=== PATIENT | female | born 1985 | race Caucasian/White ===

== ENCOUNTER 2023-10-06 22:51 | Emergency (ER) | payer MEDICAID, SELFPAY ==
[2023-10-06 23:01] VITALS: BP 110/81
[2023-10-06 23:53] VITALS: BMI 21.2
[2023-10-07] MEDS: NSS 1000 IV (00:09)
[2023-10-07] MEDS: ZOFRAN 4 MG IV ×2 (00:09→03:13)
[2023-10-07] MEDS: OMNIPAQUE 50 ML PO (00:09)
[2023-10-07 00:24] LABS: HCG, Serum Qualitative Screen Negative
[2023-10-07 00:27] LABS: Urine Albumin Negative (Neg - Trace); Urine Bilirubin Negative (Negative); Urine Character Clear (Clear); Urine Color Yellow; Urine Glucose Negative (Negative); Urine Ketone Negative (Negative); Urine Leukocyte Trace (Negative); Urine Nitrite Negative (Negative); Urine Occult Blood Negative (Negative); Urine Urobilinogen Negative (Neg - 1+)
[2023-10-07 00:28] LABS: ALT (SGPT) 18 U/L (0-35); AST (SGOT) 21 U/L (14-36); Albumin 4.7 g/dl (3.5-5.0); Alkaline Phosphatase 44 U/L (38-126); Blood Urea Nitrogen 20 mg/dl (7-17); Carbon Dioxide 22 mmol/L (22-30); Chloride 102 mmol/L (98-107); Estimated Creatinine Clearance 105 ml/min; Glucose 96 mg/dl (70-99); Potassium 3.8 mmol/L (3.5-5.1); Sodium 135 mmol/L (135-145); Total Bilirubin 0.5 mg/dl (0.2-1.3); Total Protein 7.7 g/dl (6.3-8.2); eGFR > 60.00
[2023-10-07 00:32] LABS: % Basophils 0.8 % (0-2); % Eosinophils 0.6 % (0-6); % Immature Granulocytes 0.6 % (0-0.5); % Lymphocytes 35.6 % (20.5-51.1); % Monocytes 8.6 % (1.7-9.3); % Neutrophils 53.8 % (42.2-75.2); Absolute Lymphocytes 1.9 10^3/uL (1.2-3.4); Absolute Monocytes 0.5 10^3/uL (0.1-0.6); Absolute Neutrophils 2.9 10^3/uL (1.4-6.5); Hematocrit 37.4 % (37.0-47.0); Hemoglobin 12.4 g/dL (12.0-16.0); Mean Corp Hgb Conc. 33.2 g/dL (33.0-37.0); Mean Corpuscular Hgb 28.8 pg (27.0-31.0); Mean Platelet Volume 11.2 fL (7.4-10.4); Nucleated Red Blood Cells % 0 %; Platelet Count 239 10^3/uL (130-400); White Blood Cell Count 5.3 10^3/uL (4.8-10.8)
[2023-10-07 00:39] LABS: Urine Mucus Many
[2023-10-07 00:40] LABS: Urine Bacteria Moderate (Negative); Urine Squamous Cell 16-20 /LPF (Few)
[2023-10-07 00:51] LABS: D-Dimer 0.44 ug/mlFEU (0.00-0.50)
--- NOTE | 2023-10-07 00:59 | ED.GENMED ---
History of Present Illness
General
Chief Complaint: Chest Pain
Source: patient
Exam Limitations: none
Time Seen by Provider: 10/06/23 23:46
Nursing documentation reviewed up to this point in time: agreed with
Travel History
Have you had any contact with someone who has COVID-19?: No
Do you have any symptoms of coronavirus? Fever > 100 degrees, chills, cough, shortness of breath, sore throat, loss of taste or smell, muscle aches, or headache?: No
History of Present Illness
History of Present Illness:
38 yo female w hx PE 7 yrs ago, presents with crampy pains across her abdomen constant, some relief with ibuprofen, pain waxing and waning 2/10- 9/10 for past week, developed left upper chest pain 3 days ago 'like a pulled muscle.' Denies
fever/chills. Constant nausea but no vomiting. No diarrhea. or constipation.
Past History
Past History
ED Past Medical History: Psychiatric (Anxiety), Other (Migraine headaches) and Other (GERD, PE)
ED Past Surgical History: Gynecological (D and E- 09/16/16)
Social History
Tobacco: Non-smoker
Alcohol: Occasional
Drug: Marijuana
Personal: Single
Living: alone
Employment: Employed
Family History
Family History: Other (Father had a DVT after knee replacement); Negative Diabetes, Hypertension, Early CAD or CAD
Review of Systems
Review of Systems
Allergies reviewed?: Yes
All Other Systems: ROS reviewed and negative except as documented in HPI and ROS
Constitutional: Denies fever or chills
Respiratory: Denies trouble breathing
Cardiac: Reports chest pain
ABD/GI: Reports abdominal pain, nausea and anorexia; Denies vomiting, diarrhea, constipated, bloody stools or black stools
: Denies dysuria, frequency, difficulty voiding or urgency
Musculoskeletal: Reports no symptoms
Skin: Reports no symptoms
Neurological: Reports no symptoms
Phy Exam
Physical Exam
Physical Exam:
GENERAL: No acute distress. A&Ox3.
CONSTITUTIONAL: Afebrile.
EYES: clear, conjunctivae normal
ENMT: moist mucus membranes
RESPIRATORY: Regular respirations, nonlabored, lungs clear.
CARDIOVASCULAR: Regular rate and rhythm, no murmurs, no rubs.
GI: Soft, nondistended, mildly tender to palpate mid abdomen, normal BS
MUSCULOSKELETAL: Unable to reproduce chest pain with palpation. Moves with ease. Well perfused.
SKIN: Warm, dry, pink
PSYCH: Normal mood and affect. Well kept, interactive and appropriate
NEUROLOGIC: Awake, alert and oriented. No focal neurological deficits
Scores
Heart Score for Chest Pain Patients
STEMI patient?: Not applicable
Course
Orders/Labs/Results
Orders:
Orders
10/06/23 22:54
Electrocardiogram (*1) Urgent
Reason for Study: Chest Pain
EKG- Treatment ONCE
10/06/23 23:55
Complete Blood Count/With Diff Urgent
Comprehensive Metabolic Panel Urgent
HCG, Serum Qualitative Screen Urgent
Lipase Urgent
Urinalysis Reflex To Culture Urgent
Date Specimen was Collected: 10/07/23
Time Specimen was Collected: 00:13
Iohexol [Omnipaque] See Protocol PO NOW STA
10/06/23 23:56
D-Dimer Urgent
0.9% Sodium Chloride 1000 ml [Nss] 1,000 ml IV BOLUS
Test Result ONCE
10/07/23 00:00
CT Abd/pel W Iv And Oral Contr Urgent
Reason For Exam: pain across mid abdomen
10/07/23 00:05
Ondansetron Injectable [Zofran] 4 mg .ROUTE .STK-MED ONE
10/07/23 00:08
Ondansetron Injectable [Zofran] 4 mg IV NOW STA
10/07/23 00:15
Urine Microscopic Reflex Cult Urgent
Urine Culture Urgent
[place] Source: U
Specimen Description:
Date Specimen was Collected: 10/07/23
Time Specimen was Collected: 00:13
10/07/23 02:06
Troponin I Urgent
10/07/23 03:03
Dicyclomine [Bentyl] 20 mg PO NOW STA
Ketorolac [Toradol] 15 mg IV NOW STA
Ondansetron Injectable [Zofran] 4 mg IV NOW STA
Abnormal Lab Results
10/07/23 10/07/23
00:01 00:15
MPV 11.2 H fL
(7.4-10.4)
Immature Gran % 0.6 H %
(0-0.5)
BUN 20 H mg/dl
(7-17)
Leukocyte Esterase Rfl Trace A
(Negative)
Urine RBC 3-6 A /HPF
(0-2)
Urine Bacteria (Reflex) Moderate A
(Negative)
10/07/23 00:01
10/07/23 00:01
Vital Signs
Initial and Last Documented VS:
Initial Vital Signs
Temp Pulse Resp BP Pulse Ox
98.5 F 91 16 110/81 100
10/06/23 23:01 10/06/23 23:01 10/06/23 23:01 10/06/23 23:01 10/06/23 23:01
Last Documented Vital Signs
Temp Pulse Resp BP Pulse Ox
98.5 F 75 18 99/63 99
10/06/23 23:01 10/07/23 03:24 10/07/23 03:24 10/07/23 03:24 10/07/23 03:24
MDM/Problems Addressed
Differential Diagnosis Includes:
musculoskeletal chest wall pain, PE, costochondritis
GERD, diverticulitis, colitis, constipation,GI virus
MDM/Problems Addressed:
38 yo female w hx PE 7 yrs ago, presents with crampy pains across her abdomen constant, some relief with ibuprofen, pain waxing and waning 2/10- 9/10 for past week, developed left upper chest pain 3 days ago 'like a pulled muscle.' Denies
fever/chills. Constant nausea but no vomiting. No diarrhea.
EKG:Normal sinus rhythm
10/07/2023 0059 AM
CBC normal
CMP normal
D-dimer within normal limits
hCG negative
UA negative
10/07/[address] abdomen pelvis with p.o. and IV contrast: Radiology report read: Impression: No acute process identified.
Patient informed of all results
Nothing workup today to explain patient's symptoms.
I will treat her abdominal crampy pains with antispasmodic Bentyl, her nausea with Zofran, her chest pain and abdominal pains with ibuprofen.
She is comfortable going, home, is appreciative of the care
Referred to GI for follow-up
Upon discharge patient ambulated out with normal gait
*EKG
Interpreted by ED Provider?: Yes
EKG Intrepretation Date: 10/06/23
Interpretation: normal
Rate: normal
Rhythm: sinus
[place]: normal axis
Interval: normal interval
QRS Pattern: normal QRS
Ischemia: no ischemia
*Critical Care Note
Total Time (30-74mins, 75-104mins- exclusive of procedures): Not Applicable
Patient Management
Social determinants of health affecting care: Strong social support
ED Attending Note
-
Portions of this chart may have been created with voice recognition software.� Occasional wrong word or��sound alike� substitutions may have occurred due to the inherent limitations of voice recognition software.
Discharge Plan
Departure
Patient Disposition: Home (Routine Discharge)
Date of Disposition: 10/07/23
Time of Disposition: 03:07
Patient with high blood pressure during this ER visit?: No
Condition: Fair
Discharge Problem:
Abdominal pain, Atypical chest pain
Instructions: Chest Pain That Is Not Caused by the Heart (DC), Costochondritis (DC), Abdominal Pain
Prescriptions:
New
ondansetron 4 mg tablet,disintegrating
4 mg PO Q8H PRN (Reason: nausea and vomiting) 5 Days Qty: 14 0RF
dicyclomine 20 mg tablet
20 mg PO QID PRN (Reason: abdominal pain) Qty: 20 0RF
No Action
sertraline 25 mg Tablet
25 mg PO DAILY Qty: 90 0RF
enoxaparin 40 mg/0.4 mL Syringe
40 mg SC DAILY Qty: 42 0RF
acetaminophen [Tylenol Extra Strength] 500 mg Tablet
1,000 mg PO Q6HPRN PRN (Reason: mild pain)
docusate sodium [Colace] 100 mg Capsule
100 mg PO DAILY
[facility] [] 28 mg iron- 800 mcg Tablet
2 tab PO DAILY
Referrals:
Felice eHrnandez MD [Family Provider] -
Anna Carpenter MD [Active] - Next open appointment
Activity Restrictions/Additional Instructions:
As we discussed, nothing worrisome in your workup here today.
Try the Bentyl for the abdominal cramping
I sent a prescription for Bentyl for abdominal cramps and Zofran for nausea to your pharmacy follow-up
With the GI doctor next available appointment
Try Ibuprofen for the chest pain
See your primary doctor if not feeling much better in 3-4 days
Interventions
Interventions:
*Risk Screen - Suicide Last Done: 10/06/23 23:01
*General Assessment Last Done: 10/06/23 23:01
*Neglect/Abuse Screening Last Done: 10/06/23 23:01
ED- Fall Risk Assessment Last Done: 10/06/23 23:50
*ED COVID-19 Vaccine History Last Done: 10/07/23 03:24
*Nursing Disposition Last Done: 10/07/23 03:24
ED- Cardiac Assessment Last Done: 10/06/23 23:50
Discharge Date and Time
Discharge Date/Time: 10/07/23 03:26
[2023-10-07 01:16] LABS: Lipase 63 U/L (23-300)
[2023-10-07 02:56] LABS: Troponin I < 0.012 ng/ml
[2023-10-07] MEDS: TORADOL 15 MG IV (03:12)
[2023-10-07] MEDS: BENTYL 20 MG PO (03:13)
[2023-10-07 03:24] VITALS: BP 99/63
== END 2023-10-07 03:26 | disposition home or self-care (01) ==
LOC: EMR 22:51
PROVIDERS: Registered Nurse; EMERGENCY PHYSICIAN Emergency Medicine; FAMILY PHYSICIAN Family Medicine
DX: R10.9 Unspecified abdominal pain (principal); R07.89 Other chest pain; R11.0 Nausea; Z86.711 Personal history of pulmonary embolism
CPT/HCPCS: 99285; 96374; 96375; 96361; 96376; 74177; 80053; 81003; 81015; 83690; 84484; 84703; 85025; 85379; 87086; 93005; Q9967

== ENCOUNTER 2024-02-26 19:08 | Emergency (ER) | payer MEDICAID, SELFPAY ==
[2024-02-26 19:12] VITALS: BP 117/75
[2024-02-26 19:42] LABS: % Basophils 0.8 % (0-2); % Immature Granulocytes 0.3 % (0-0.5); % Lymphocytes 31.2 % (20.5-51.1); % Monocytes 7.7 % (1.7-9.3); Absolute Basophils 0.1 10^3/uL (0-0.2); Absolute Eosinophils 0.1 10^3/uL (0-0.7); Absolute Monocytes 0.5 10^3/uL (0.1-0.6); Absolute Neutrophils 3.7 10^3/uL (1.4-6.5); Hematocrit 35.8 % (37.0-47.0); Hemoglobin 12.1 g/dL (12.0-16.0); Mean Corp Hgb Conc. 33.8 g/dL (33.0-37.0); Mean Corpuscular Volume 88.6 fL (81.0-99.0); Mean Platelet Volume 10.8 fL (7.4-10.4); Nucleated Red Blood Cells % 0 %; Platelet Count 248 10^3/uL (130-400); Red Blood Cell Count 4.04 10^6/uL (4.20-5.40); Red Cell Dist. Width 11.9 % (11.5-14.5); White Blood Cell Count 6.3 10^3/uL (4.8-10.8)
[2024-02-26 19:54] LABS: HCG, Serum Qualitative Screen Negative
[2024-02-26 19:55] LABS: COVID-19 Antigen Negative (Negative)
[2024-02-26 19:58] LABS: ALT (SGPT) < 10 U/L (0-35); AST (SGOT) 18 U/L (14-36); Albumin 2.9 g/dl (3.5-5.0); Alkaline Phosphatase 40 U/L (38-126); Blood Urea Nitrogen 14 mg/dl (7-17); Calcium 9.6 mg/dl (8.4-10.2); Carbon Dioxide 27 mmol/L (22-30); Chloride 105 mmol/L (98-107); Glucose 107 mg/dl (70-99); Lipase 85 U/L (23-300); Potassium 3.9 mmol/L (3.5-5.1); Sodium 138 mmol/L (135-145); Total Bilirubin 0.4 mg/dl (0.2-1.3); eGFR > 60.00
[2024-02-26 20:09] LABS: Troponin I < 0.012 ng/ml
--- NOTE | 2024-02-26 21:58 | ED.GENMED ---
History of Present Illness
General
Chief Complaint: Headache
Source: patient
Exam Limitations: none
Time Seen by Provider: 02/26/24 21:35
Nursing documentation reviewed up to this point in time: agreed with
History of Present Illness
History of Present Illness:
Patient is a 38-year-old female with history of factor V Leiden, PE (7 years ago )presents to the ER for evaluation. She reports for the past 1 week she has had constant generalized headaches nausea and chest pain. She has felt short winded. She
was playing softball and did feel short of breath which is not like her she does report she is under a lot of stress planning a wedding and planning her 1-year-old's birthday but because of persistent symptoms came to the ER for evaluation.
She denies any fever chills illness injury. She denies any joint pain rash neck pain. She denies any vision changes. She has been taking Ibuprofen/Excedrin for her headaches however that is not relieving her s/s.
Past History
Past History
ED Past Medical History: Psychiatric (Anxiety), Other (Migraine headaches) and Other (GERD, PE)
ED Past Surgical History: Gynecological (D and E- 09/16/16)
Social History
Tobacco: Non-smoker
Alcohol: Occasional
Drug: Marijuana
Personal: Single
Living: alone
Employment: Employed
Family History
Family History: Other (Father had a DVT after knee replacement); Negative Diabetes, Hypertension, Early CAD or CAD
Review of Systems
Review of Systems
Allergies reviewed?: Yes
All Other Systems: ROS reviewed and negative except as documented in HPI and ROS
Constitutional: Reports no symptoms; Denies fever, fatigue or chills
EENT: Reports no symptoms
Respiratory: Reports no symptoms
Cardiac: Reports chest pain
ABD/GI: Reports nausea; Denies vomiting
: Reports no symptoms
Musculoskeletal: Reports no symptoms; Denies neck pain
Skin: Reports no symptoms; Denies rash
Neurological: Reports headache; Denies dizzy
Hematologic/Lymphatic: Reports no symptoms
Psychiatric: Reports no symptoms
Phy Exam
General Physical Exam
General Presentation: no apparent distress
General age: appears stated age
General Skin: warm and dry
General Habitus: normal
General Mental: alert
General Hydration: appears well hydrated
ENT Exam
ENT Exam: EOMI and neck supple
Eye Exam
Eye Exam: PERRL and EOMI
Eye Exam General: PERRL: bilateral and EOM intact: bilateral
Pupil Exam: Bilateral: round and reactive
Cardiovascular Exam
Cardiovascular Exam: regular rate/rhythm, no murmur and normal peripheral pulses
Pulmonary Exam
Pulmonary Exam: lungs clear and no respiratory distress
Neurological Exam
Neurological Exam: alert and oriented x3
Russel Coma Scale
Eye Opening: Spontaneous
Verbal Response: Oriented
Motor Response: Obeys Commands
GCS Total Score: 15
Cerebellar
Cerebellar Function: normal finger to nose
Musculoskeletal Exam
Musculoskeletal Exam: full ROM
Skin Exam
Skin Exam: normal color and warm/dry
Psychiatric Exam
Psychiatric Exam: normal mood/affect
Course
Orders/Labs/Results
Orders:
Orders
02/26/24 19:17
EKG [Electrocardiogram (*1)] Urgent
Reason for Study: Chest Pain
EKG- Treatment ONCE
Test Result ONCE
02/26/24 19:27
Add On- LAB Urgent
Tests Added?: lipase
CBC/With Diff [Complete Blood Count/With Diff] Urgent
CMP [Comprehensive Metabolic Panel] Urgent
COVID-19 Antigen Urgent
Source: Nasal Swab
HCG, Serum Qualitative Screen Urgent
Lipase Urgent
Comment: ADD ON
Troponin I Urgent
02/26/24 22:10
CT Head W/o Iv Contrast Urgent
Comment:
Reason For Exam: headache
Chest PE Study CT [CT Chest Pe Study] Urgent
Comment:
Reason For Exam: cp /sob
02/26/24 23:12
Diphenhydramine [Benadryl] 25 mg IV NOW STA
Metoclopramide [Reglan] 10 mg IV NOW STA
02/26/24 23:13
0.9% Sodium Chloride 1000 ml [Nss] 1,000 ml IV BOLUS
Abnormal Lab Results
02/26/24
19:27
RBC 4.04 L 10^6/uL
(4.20-5.40)
Hct 35.8 L %
(37.0-47.0)
MPV 10.8 H fL
(7.4-10.4)
Glucose 107 H mg/dl
(70-99)
Albumin 2.9 L g/dl
(3.5-5.0)
02/26/24 19:27
02/26/24 19:27
Vital Signs
Initial and Last Documented VS:
Initial Vital Signs
Temp Pulse Resp BP Pulse Ox
98.2 F 79 18 117/75 97
02/26/24 19:12 02/26/24 19:12 02/26/24 19:12 02/26/24 19:12 02/26/24 19:12
Last Documented Vital Signs
Temp Pulse Resp BP Pulse Ox
98.2 F 71 16 96/55 99
02/26/24 19:12 02/27/24 00:05 02/27/24 00:05 02/27/24 00:05 02/27/24 00:05
MDM/Problems Addressed
Differential Diagnosis Includes:
Not limited to headache, migraine, viral syndrome, less likely PE less likely acute coronary syndrome
MDM/Problems Addressed:
Patient is a 38-year-old female history of factor V Leiden history PE presents for evaluation of 1 week of headache chest pain and nausea. Patient reports she is in a lot of stress and tension planning a wedding and planning a birthday for child
however this headache has been persistent she denies any visual deficit. Denies any fever chills recent illness. She also has had some persistent left-sided chest pain that does not feel like her previous PE though at times she does feel short
winded. She presents awake alert no acute distress afebrile no meningismus normal white nontoxic-appearing, nontachycardic nonhypoxic labs unremarkable normal chemistries. COVID-negative. With history of previous PE CT of chest was done and
negative. CT of head was done for persistent headache and negative. Patient was seen with Reglan Benadryl fluids and reports it did help for headache but she does feel the headache coming back. She declined any additional medication and reports
she feels well enough to go home. We did consider Lyme and Lyme test was ordered and added onto patient's labs. I did review with patient however that she must follow-up with her family doctor for reevaluation of this persistent headache. She is
to return if any worsening of symptoms
Chronic conditions affecting care:
History of PE in the past factor V Leiden
*Radiology
Radiology exam reviewed: radiology read reviewed
*Pulse Oximetry
Patient hypoxic: no
*EKG
Interpreted by ED Provider?: Yes
Interpretation: normal
Comparison EKG: no changes
Heart Rate: 73
Rate: normal
Rhythm: sinus
Ischemia: no ischemia
*Critical Care Note
Total Time (30-74mins, 75-104mins- exclusive of procedures): Not Applicable
ED Attending Note
-
Portions of this chart may have been created with voice recognition software.� Occasional wrong word or��sound alike� substitutions may have occurred due to the inherent limitations of voice recognition software.
Discharge Plan
Departure
Patient Disposition: Home (Routine Discharge)
Date of Disposition: 02/27/24
Time of Disposition: 00:52
Patient with high blood pressure during this ER visit?: No
Discharge Problem:
Headache, Chest pain
Instructions: Chest Pain (DC), Chest Pain PCP Follow Up
Prescriptions:
No Action
sertraline 25 mg Tablet
25 mg PO DAILY Qty: 90 0RF
enoxaparin 40 mg/0.4 mL Syringe
40 mg SC DAILY Qty: 42 0RF
acetaminophen [Tylenol Extra Strength] 500 mg Tablet
1,000 mg PO Q6HPRN PRN (Reason: mild pain)
docusate sodium [Colace] 100 mg Capsule
100 mg PO DAILY
[facility] c[facility]#95-ferrous fumarate-FA [] 28 mg iron- 800 mcg Tablet
2 tab PO DAILY
ondansetron 4 mg tablet,disintegrating
4 mg PO Q8H PRN (Reason: nausea and vomiting) 5 Days Qty: 14 0RF
dicyclomine 20 mg tablet
20 mg PO QID PRN (Reason: abdominal pain) Qty: 20 0RF
Referrals:
UNKNOWN - PT DOES,NOT KNOW [Family Provider] -
Activity Restrictions/Additional Instructions:
As discussed may alternate between Tylenol and ibuprofen for headaches. Closely follow-up however with your family doctor the next 2 days for reevaluation of persistent symptoms. Return if any worsening of symptoms of worsening headache fever
chills neck pain or any further concerns.
Interventions
Interventions:
*Risk Screen - Suicide Last Done: 02/26/24 19:12
*General Assessment Last Done: 02/26/24 19:12
*Neglect/Abuse Screening Last Done: 02/26/24 19:12
RZ-Nzrqbh-Jceqtxhyer Assessment Last Done: 02/27/24 00:00
ED- Cardiac Assessment Last Done: 02/27/24 00:00
ED- Neurological Assessment Last Done: 02/27/24 00:00
ED- Pulmonary Assessment Last Done: 02/27/24 00:00
Discharge Date and Time
Print Language: KUWAITI
[2024-02-26] MEDS: BENADRYL 25 MG IV (23:15)
[2024-02-26] MEDS: REGLAN 10 MG IV (23:15)
[2024-02-26] MEDS: NSS 1000 IV (23:37)
[2024-02-27 00:05] VITALS: BP 96/55
[2024-02-27 01:02] VITALS: BP 96/55
[2024-02-29 14:36] LABS: Lyme Antibody Screen, EIA Negative (Negative)
== END 2024-02-27 01:03 | disposition home or self-care (01) ==
LOC: EMR 19:08
PROVIDERS: Student in an Organized Health Care Education/Training Program; EMERGENCY PHYSICIAN Emergency Medicine
DX: R51.9 Headache, unspecified (principal); R07.89 Other chest pain; D68.51 Activated protein C resistance; F41.9 Anxiety disorder, unspecified; K21.9 Gastro-esophageal reflux disease without esophagitis; Z82.49 Family history of ischemic heart disease and other diseases of the circulatory system; Z86.711 Personal history of pulmonary embolism
CPT/HCPCS: 99284; 96374; 96375; 96361; 70450; 71275; 80053; 83690; 84484; 84703; 85025; 86618; 87811; 93005; Q9967

== ENCOUNTER 2025-01-24 23:27 | Emergency (ER) | payer BC, SELFPAY ==
[2025-01-24 23:35] VITALS: BP 116/82
[2025-01-25 00:20] LABS: HCG, Serum Qualitative Screen Negative
[2025-01-25 00:25] LABS: ALT (SGPT) 10 U/L (0-35); AST (SGOT) 18 U/L (14-36); Albumin 4.7 g/dl (3.5-5.0); Alkaline Phosphatase 35 U/L (38-126); Blood Urea Nitrogen 17 mg/dl (7-17); Calcium 9.8 mg/dl (8.4-10.2); Carbon Dioxide 23 mmol/L (22-30); Chloride 105 mmol/L (98-107); Glucose 96 mg/dl (70-99); Potassium 3.8 mmol/L (3.5-5.1); Sodium 136 mmol/L (135-145); Total Protein 7.6 g/dl (6.3-8.2); eGFR > 60.00
[2025-01-25 00:41] LABS: Hematocrit 34.8 % (37.0-47.0); Hemoglobin 11.7 g/dL (12.0-16.0); Mean Corp Hgb Conc. 33.6 g/dL (33.0-37.0); Mean Corpuscular Volume 89.2 fL (81.0-99.0); Nucleated Red Blood Cells % 0 %; Platelet Count 276 10^3/uL (130-400); Red Cell Dist. Width 11.8 % (11.5-14.5)
--- NOTE | 2025-01-25 01:04 | ED.GENMED ---
History of Present Illness
General
Chief Complaint: Chest Pain
Source: patient
Exam Limitations: none
Time Seen by Provider: 01/25/25 01:02
History of Present Illness
History of Present Illness:
See MDM
Past History
Past History
ED Past Medical History: Psychiatric (Anxiety), Other (Migraine headaches) and Other (GERD, PE)
ED Past Surgical History: Gynecological (D and E- 09/16/16)
Social History
Tobacco: Non-smoker
Alcohol: Occasional
Drug: Marijuana
Personal: Single
Living: alone
Employment: Employed
Family History
Family History: Other (Father had a DVT after knee replacement); Negative Diabetes, Hypertension, Early CAD or CAD
Phy Exam
Physical Exam
Physical Exam:
See MDM
Scores
Heart Score for Chest Pain Patients
STEMI patient?: Not applicable
Course
Orders/Labs/Results
Orders:
Orders
01/24/25 23:42
EKG [Electrocardiogram (*1)] Urgent
Reason for Study: Chest Pain
EKG- Treatment ONCE
01/24/25 23:46
Complete Blood Count/With Diff Urgent
Comprehensive Metabolic Panel Urgent
HCG, Serum Qualitative Screen Urgent
Test Result ONCE
01/25/25 00:01
CT Chest PE Study Urgent
Reason For Exam: chest pain, hx PE, + Factor V (?Leiden)
Abnormal Lab Results
01/25/25
00:04
RBC 3.90 L 10^6/uL
(4.20-5.40)
Hgb 11.7 L g/dL
(12.0-16.0)
Hct 34.8 L %
(37.0-47.0)
MPV 10.9 H fL
(7.4-10.4)
Alkaline Phosphatase 35 L U/L
(38-126)
01/25/25 00:04
01/25/25 00:04
Vital Signs
Initial and Last Documented VS:
Initial Vital Signs
Temp Pulse Resp BP Pulse Ox
98.3 F 80 16 116/82 99
01/24/25 23:35 01/24/25 23:35 01/24/25 23:35 01/24/25 23:35 01/24/25 23:35
Last Documented Vital Signs
Temp Pulse Resp BP Pulse Ox
98.3 F 80 16 116/82 99
01/24/25 23:35 01/24/25 23:35 01/24/25 23:35 01/24/25 23:35 01/25/25 01:05
MDM/Problems Addressed
Differential Diagnosis Includes:
HPI and MDM Narrative:
39-year-old female presenting for evaluation of chest pressure for the past 2 days. Given prior history of PEs, patient was concerned this could be another PE. She does acknowledge that she was started to get anxious. Symptoms are worse when she
lifts her hands up. She does acknowledge that this could be a muscle strain and she has been holding her 2-year-old.
Her prior history, will obtain CT PE rule
She also complains of mild abdominal discomfort. On my exam, her abdomen is soft and nontender. Discussed likely constipation. Patient does acknowledge that this is also concerning for us. Discussed laxatives at home. Given the benign exam, we
discussed low utility of CT
Physical exam
General: Well appearing and non-toxic
HEENT: protecting airway
Neck: appears supple
CV: No evidence of cyanosis. Regular rate and rhythm
Resp: No accessory muscle use. Lungs clear
Abd: Non-distended. Soft and nontender
Extremities: No deformities
Neuro: alert
Psych: Normal affect
Skin: Intact
Problems Addressed including Acute and Chronic Conditions affecting care:
1. Chest pressure
Acuity: acute
Prognosis: stable
Details: Given prior history, will obtain CT PE
Updates
CT negative for PE. Patient feels comfortable going home
Differential Diagnosis (but not limited to): Noncardiac chest comfort, PE, atelectasis
Testing considered: D-dimer but she is high risk
Drug therapy (if applicable): OTC meds, please see d/c instruction regarding Rx drugs
Amount and/or Complexity of Data Reviewed
Clinical info obtained from: Patient
External data reviewed: N/A
Labs I independently reviewed (but not limited to): White blood cell count
Radiology: The CT scan was personally and independently reviewed. In addition, official CT report reviewed.
Pulse Ox: not hypoxic
EKG independently reviewed: Sinus rhythm, normal axis, no STEMI
Pearl Glue Operator: N/A
Critical Care: N/A
Risk of Complication:
Social Determinants of health: Good social support
Discussed with other providers: N/A
Escalation of Care includes Admit/Obs: After being observed in the Emergency Department, pt stable for discharge.
Occasional wrong word or 'sound a like' substitutions may have occurred due to the inherent limitations of voice recognition software. Read the chart carefully and recognize, using context, where substitutions have occurred.
*Pulse Oximetry
SaO2: 99
Oxygen Mode of Delivery: Room air
Patient hypoxic: no
*Critical Care Note
Total Time (30-74mins, 75-104mins- exclusive of procedures): Not Applicable
ED Attending Note
-
Portions of this chart may have been created with voice recognition software.� Occasional wrong word or��sound alike� substitutions may have occurred due to the inherent limitations of voice recognition software.
Discharge Plan
Departure
Patient Disposition: Home (Routine Discharge)
Date of Disposition: 01/25/25
Time of Disposition: 02:23
Patient with high blood pressure during this ER visit?: No
Discharge Problem:
Chest wall discomfort
Prescriptions:
No Action
sertraline 25 mg Tablet
25 mg PO DAILY Qty: 90 0RF
enoxaparin 40 mg/0.4 mL Syringe
40 mg SC DAILY Qty: 42 0RF
acetaminophen [Tylenol Extra Strength] 500 mg Tablet
1,000 mg PO Q6HPRN PRN (Reason: mild pain)
docusate sodium [Colace] 100 mg Capsule
100 mg PO DAILY
[facility]V no.95-ferrous fumarate-FA [] 28 mg iron- 800 mcg Tablet
2 tab PO DAILY
ondansetron 4 mg tablet,disintegrating
4 mg PO Q8H PRN (Reason: nausea and vomiting) 5 Days Qty: 14 0RF
dicyclomine 20 mg tablet
20 mg PO QID PRN (Reason: abdominal pain) Qty: 20 0RF
Referrals:
UNKNOWN - PT DOES,NOT KNOW [Family Provider]
Activity Restrictions/Additional Instructions:
Please return for any worsening symptoms.
You may return at any time if you have further concerns.
Please follow up with your doctor at the first available appointment, preferably this week.
Thank you for choosing [facility].
Interventions
Interventions:
*Risk Screen - Suicide Last Done: 01/24/25 23:35
*General Assessment Last Done: 01/25/25 02:08
*Neglect/Abuse Screening Last Done: 01/25/25 02:08
*ED- Fall Risk Assessment Last Done: 01/25/25 02:08
ED- Cardiac Assessment Last Done: 01/25/25 02:07
Discharge Date and Time
Print Language: CZECH
== END 2025-01-25 02:30 | disposition home or self-care (01) ==
LOC: EMR 23:27
PROVIDERS: EMERGENCY PHYSICIAN Student in an Organized Health Care Education/Training Program
DX: R07.89 Other chest pain (principal); Z86.711 Personal history of pulmonary embolism
CPT/HCPCS: 99284; 71275; 80053; 84703; 85025; 93005; Q9967

== ENCOUNTER 2025-05-31 04:31 | Emergency (ER) | payer OTHER, SELFPAY ==
[2025-05-31 04:35] VITALS: BP 112/79
[2025-05-31 05:04] VITALS: BMI 20.1
--- NOTE | 2025-05-31 05:08 | ED.GENMED ---
History of Present Illness
General
Chief Complaint: Chest Pain
Source: patient
Exam Limitations: none
Time Seen by Provider: 05/31/25 05:01
History of Present Illness
History of Present Illness:
See MDM
Past History
Past History
ED Past Medical History: Psychiatric (Anxiety), Other (Migraine headaches) and Other (GERD, PE)
ED Past Surgical History: Gynecological (D and E- 09/16/16)
Social History
Tobacco: Non-smoker
Alcohol: Occasional
Drug: Marijuana
Personal: Single
Living: alone
Employment: Employed
Family History
Family History: Other (Father had a DVT after knee replacement); Negative Diabetes, Hypertension, Early CAD or CAD
Phy Exam
Physical Exam
Physical Exam:
See MDM
Scores
Heart Score for Chest Pain Patients
STEMI patient?: No
History: Slightly or Non-Suspicious
ECG: Normal
Age: </= 45 years
Risk Factors: No Risk Factors
Troponin: </= Normal Limit
Heart Score for Chest Pain Patients: 0
Heart Score Risk: 2.5% MACE over next 6 weeks
Course
Orders/Labs/Results
Orders:
Orders
05/31/25 04:35
Electrocardiogram (*1) Urgent
Reason for Study: Chest Pain
EKG- Treatment ONCE
05/31/25 04:43
Cardiac Monitoring- Treatment ONCE
IV Insert/Care/Rem.- Treatment PRN
CR Chest - 2 Views Urgent
Comment:
Reason For Exam: respiratory distress
O2 Therapy [RESP] Urgent
Titrate/Wean O2 to maintain O2 sat greater than (%): 93
Special Instructions: TO MAINTAIN CONTINUOUS O2 SATS >/= 93%
Pulse Ox/cont/shift [RESP] Urgent
Quantity: 1
Special Instructions: continuous pulse ox
05/31/25 05:17
Complete Blood Count/With Diff Urgent
Comprehensive Metabolic Panel Urgent
NT-proBNP Urgent
Troponin I Urgent
Abnormal Lab Results
05/31/25
05:17
RBC 3.83 L 10^6/uL
(4.20-5.40)
Hgb 11.5 L g/dL
(12.0-16.0)
Hct 34.5 L %
(37.0-47.0)
Monocytes % 10.3 H %
(1.7-9.3)
Alkaline Phosphatase 32 L U/L
(38-126)
05/31/25 05:17
05/31/25 05:17
Vital Signs
Initial and Last Documented VS:
Initial Vital Signs
Temp Pulse Resp BP Pulse Ox
97.9 F 80 20 112/79 98
05/31/25 04:35 05/31/25 04:35 05/31/25 04:35 05/31/25 04:35 05/31/25 04:35
Last Documented Vital Signs
Temp Pulse Resp BP Pulse Ox
97.9 F 85 7 112/79 100
05/31/25 04:35 05/31/25 05:03 05/31/25 05:03 05/31/25 04:35 05/31/25 05:11
MDM/Problems Addressed
Differential Diagnosis Includes:
Note:
CHIEF COMPLAINT(S)
Arm pain, chest pain, nausea, and sharp abdominal discomfort.
HISTORY OF PRESENT ILLNESS
The patient is a 39-year-old female presenting with arm pain and chest pain. She is unsure if the pain is related to lifting her [id number] child, which she initially attributed to muscular strain. The previous night, she woke at 3 a.m. with chest
pain. The pain was unusual for her GERD and concerned her. She took a shower and ativan, attributing her symptoms to anxiety. The chest pain eased but returned with a faint sensation of nausea. The patient has a history of blood clots in the past
but is currently not on anticoagulation therapy. She confirms this episode feels different from the past clot episode. Associated symptoms include some abdominal discomfort, which she describes as 'sharp' but now feels just discomfort. She denies
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 The patient experienced some discomfort in her legs, but attributes it to her active lifestyle. She gets more nervous, exacerbating her symptoms, but reports no significant changes with
exertion. Vital signs and EKG were reviewed and were normal, as was a chest X-ray.
EXTERNAL RECORDS REVIEWED
1. The patient�s previous EKG and chest X-ray were reviewed and found unremarkable.
CHRONIC MEDICAL CONDITIONS SIGNIFICANTLY AFFECTING CARE
Chronic conditions affecting care include a history of blood clots and GERD.
PHYSICAL EXAM
General: Alert, no acute distress.
Skin: Warm, dry.
Head: Normocephalic, atraumatic
Neck: Appears supple, trachea midline.
Eyes, Ears, Nose, Mouth, and Throat: Moist mucous membranes
Cardiovascular: No signs of cyanosis. Regular rate and rhythm
Respiratory: Respirations are non-labored. Lungs clear
Abdomen: Non-distended. No tenderness elicited
Musculoskeletal: No deformities. Patient points to a muscle strain to her right IT band. No tenderness to devious palpation
Neurological: No focal neurological deficit observed.
Psychiatric: Cooperative, appropriate mood and affect.
PLAN
Perform lab work to rule out any serious conditions, considering the history of blood clots and presenting symptoms. The goal is reassurance, ensuring no significant issues before discharge. Although patient has had a prior PE, she is neither
tachycardic nor hypoxic and has no clinical signs of DVT.
DIFFERENTIAL DIAGNOSIS
- Musculoskeletal pain
- Gastroesophageal reflux disease flare
- Anxiety-induced symptoms
- Possible peptic ulcer disease
- Gallbladder disease
- Atypical angina
- Costochondritis
- Pleurodynia
- Pneumothorax (less likely)
- Atypical pulmonary embolism (considering history of clots, although less likely)
SUMMARY OF ENCOUNTER
The patient was seen in the emergency department for complaints of arm pain, atypical chest pain, and sharp abdominal discomfort. Given her history of blood clots, thorough consideration was made to rule out significant cardiovascular or pulmonary
events. EKG and chest X-ray results were normal. Physical examination pointed towards musculoskeletal pain and possible GERD exacerbation. Labs will be essential in final evaluation, but the current plan is to reassure the patient if all tests
return within normal ranges, aligning with her current symptomatology and history.
MEDICATION RECONCILIATION
The patient currently does not take any routine medications but took aspirin following the onset of symptoms.
MEDICAL DECISION MAKING
-Complexity of Data Reviewed: Chronic conditions affecting care include a history of blood clots and GERD. The differential diagnosis includes musculoskeletal pain, GERD flare, anxiety-induced symptoms, peptic ulcer disease, gallbladder disease,
atypical angina, costochondritis, pleurodynia, pneumothorax, and atypical pulmonary embolism.
-Data:
Category 1
Clinical information obtained independently verified normal EKG and chest X-ray results.
Category 2
None mentioned.
Category 3
None mentioned.
-Risk:
Prescription medication was considered, but ultimately not given after further discussion.
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
SUMMARY OF ENCOUNTER
The patient presented to the emergency department with chest discomfort and was primarily concerned about a potential heart-related issue. An EKG was performed, which did not indicate ischemia, and a troponin test returned negative. A chest X-ray
was interpreted to be clear. Following these results, the patient reported feeling much better. The discussion included the likelihood of non-cardiac chest pain, return precautions, and the importance of following up with her primary care provider.
PLAN
Reassure the patient of the negative findings indicating non-cardiac chest pain and advise her to follow up with primary care. Educate the patient on return precautions.
INDEPENDENT REVIEW OF LABS AND INTERPRETATION OF TESTS
- My independent review of EKG is non-ischemic.
- My independent interpretation of troponin is negative.
- My independent interpretation of the chest x-ray is clear to me.
PATIENT EDUCATION AND COUNSELING
Discussed with the patient the likelihood of non-cardiac chest pain and provided information on return precautions and following up with primary care.
FOLLOW-UP INSTRUCTIONS
Advised the patient to follow up with her primary care provider.
MEDICAL DECISION MAKING
-Complexity of Data Reviewed: Chronic conditions affecting care include history of blood clots and GERD. Differential diagnosis considered included musculoskeletal pain, GERD flare, anxiety-induced symptoms, peptic ulcer disease, gallbladder
disease, atypical angina, costochondritis, pleurodynia, pneumothorax, and atypical pulmonary embolism.
-Data:
Category 1
- My independent interpretation of the EKG shows no ischemia.
- My independent interpretation of the chest x-ray is that it is clear.
-Risk: Consideration of Admission/Observation: Escalation of care including admission/observation was considered given the complexity and risk of the patients presenting complaint and her underlying comorbidities. However, ultimately I feel the
patient is safe for outpatient management with close follow-up. Reasoning: Work-up reassuring, does not reveal any acute life/organ threatening processes, patients symptoms well controlled upon reevaluation, reexamination is reassuring, vitals are
stable, patient agreeable with discharge, reliable for follow-up. 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
DIAGNOSIS
- Non-cardiac chest pain (ICD-10: R07.89)
*Pulse Oximetry
SaO2: 100
Oxygen Mode of Delivery: Room air
Patient hypoxic: no
*Critical Care Note
Total Time (30-74mins, 75-104mins- exclusive of procedures): Not Applicable
ED Attending Note
-
Portions of this chart may have been created with voice recognition software.� Occasional wrong word or��sound alike� substitutions may have occurred due to the inherent limitations of voice recognition software.
Discharge Plan
Departure
Patient Disposition: Home (Routine Discharge)
Date of Disposition: 05/31/25
Time of Disposition: 06:24
Patient with high blood pressure during this ER visit?: No
Discharge Problem:
Chest pain
Instructions: Chest Pain PCP Follow Up
Prescriptions:
No Action
sertraline 25 mg Tablet
25 mg PO DAILY Qty: 90 0RF
enoxaparin 40 mg/0.4 mL Syringe
40 mg SC DAILY Qty: 42 0RF
acetaminophen [Tylenol Extra Strength] 500 mg Tablet
1,000 mg PO Q6HPRN PRN (Reason: mild pain)
docusate sodium [Colace] 100 mg Capsule
100 mg PO DAILY
PNV no.95-ferrous fumarate-FA [] 28 mg iron- 800 mcg Tablet
2 tab PO DAILY
ondansetron 4 mg tablet,disintegrating
4 mg PO Q8H PRN (Reason: nausea and vomiting) 5 Days Qty: 14 0RF
dicyclomine 20 mg tablet
20 mg PO QID PRN (Reason: abdominal pain) Qty: 20 0RF
Referrals:
Felice Hernandez MD [Family Provider, Family Practice]
Activity Restrictions/Additional Instructions:
Please return for any worsening symptoms.
You may return at any time if you have further concerns.
Please follow up with your doctor at the first available appointment, preferably this week.
Thank you for choosing [facility].
Interventions
Interventions:
*Risk Screen - Suicide Last Done: 05/31/25 04:35
*General Assessment Last Done: 05/31/25 04:35
*Neglect/Abuse Screening Last Done: 05/31/25 04:35
*ED- Fall Risk Assessment Last Done: 05/31/25 04:35
*ED COVID-19 Vaccine History Last Done: 05/31/25 04:35
*ED Influenza Vaccine History Last Done: 05/31/25 04:35
ED- Cardiac Assessment Last Done: 05/31/25 05:04
Discharge Date and Time
Print Language: PANAMANIAN
[2025-05-31 05:32] LABS: Hematocrit 34.5 % (37.0-47.0); Hemoglobin 11.5 g/dL (12.0-16.0); Mean Corp Hgb Conc. 33.3 g/dL (33.0-37.0); Mean Corpuscular Volume 90.1 fL (81.0-99.0); Nucleated Red Blood Cells % 0 %; Platelet Count 245 10^3/uL (130-400); Red Cell Dist. Width 11.5 % (11.5-14.5)
[2025-05-31 06:07] LABS: Troponin I < 0.012 ng/ml
[2025-05-31 06:21] LABS: ALT (SGPT) 10 U/L (0-35); AST (SGOT) 16 U/L (14-36); Albumin 4.1 g/dl (3.5-5.0); Alkaline Phosphatase 32 U/L (38-126); Blood Urea Nitrogen 11 mg/dl (7-17); Calcium 9.3 mg/dl (8.4-10.2); Carbon Dioxide 24 mmol/L (22-30); Chloride 106 mmol/L (98-107); Estimated Creatinine Clearance 112 ml/min; Glucose 87 mg/dl (70-99); Potassium 4.0 mmol/L (3.5-5.1); Sodium 136 mmol/L (135-145); Total Protein 6.8 g/dl (6.3-8.2); eGFR > 60.00
== END 2025-05-31 06:36 | disposition home or self-care (01) ==
LOC: EMR 04:31
PROVIDERS: EMERGENCY PHYSICIAN Student in an Organized Health Care Education/Training Program; FAMILY PHYSICIAN Family Medicine
DX: R07.89 Other chest pain (principal); K21.9 Gastro-esophageal reflux disease without esophagitis; Z86.711 Personal history of pulmonary embolism
CPT/HCPCS: 99285; 71046; 80053; 83880; 84484; 85025; 93005

== ENCOUNTER 2025-06-15 18:37 | Emergency (ER) | payer OTHER, SELFPAY ==
[2025-06-15 18:55] VITALS: BP 104/64
[2025-06-15 19:33] LABS: Hematocrit 37.0 % (37.0-47.0); Hemoglobin 12.4 g/dL (12.0-16.0); Mean Corp Hgb Conc. 33.5 g/dL (33.0-37.0); Mean Corpuscular Volume 88.3 fL (81.0-99.0); Nucleated Red Blood Cells % 0 %; Platelet Count 248 10^3/uL (130-400); Red Cell Dist. Width 11.5 % (11.5-14.5)
[2025-06-15 19:39] LABS: INR 1.06; PT 13.9 Sec (11.4-14.6)
[2025-06-15 19:49] LABS: ALT (SGPT) 10 U/L (0-35); AST (SGOT) 15 U/L (14-36); Albumin 4.4 g/dl (3.5-5.0); Alkaline Phosphatase 36 U/L (38-126); Blood Urea Nitrogen 8 mg/dl (7-17); Calcium 9.2 mg/dl (8.4-10.2); Carbon Dioxide 26 mmol/L (22-30); Chloride 106 mmol/L (98-107); Glucose 90 mg/dl (70-99); Potassium 4.3 mmol/L (3.5-5.1); Sodium 136 mmol/L (135-145); Total Protein 7.5 g/dl (6.3-8.2); eGFR > 60.00
[2025-06-15 20:00] LABS: Troponin I < 0.012 ng/ml
--- NOTE | 2025-06-15 21:11 | ED.GENMED ---
History of Present Illness
General
Chief Complaint: Headache
Source: patient
Exam Limitations: none
Time Seen by Provider: 06/15/25 20:50
Nursing documentation reviewed up to this point in time: agreed with
History of Present Illness
History of Present Illness:
40-year-old female history of PE 9 years ago, negative factor V workup, does take Lovenox when she is , presents with chest pain after her son was sitting on her chest somewhat reminiscent of her PEs she feels anxious about that also has
some headache different than her migraines, admits to a lot of stress in her life she has a 2 and a 5-year-old, no fevers, no cough no vomiting not currently anticoagulated
Past History
Past History
ED Past Medical History: Psychiatric (Anxiety), Other (Migraine headaches) and Other (GERD, PE)
ED Past Surgical History: Gynecological (D and E- 09/16/16)
Social History
Tobacco: Non-smoker
Alcohol: Occasional
Drug: Marijuana
Personal:
Living: with family
Employment: Employed
Family History
Family History: Other (Father had a DVT after knee replacement); Negative Diabetes, Hypertension, Early CAD or CAD
Review of Systems
Review of Systems
All Other Systems: Not applicable
Constitutional: Denies fever or fatigue
Cardiac: Reports chest pain
ABD/GI: Reports no symptoms
: Reports no symptoms
Neurological: Reports headache
Psychiatric: Reports anxiety
Phy Exam
Physical Exam
Physical Exam:
Physical Exam
General: no apparent distress, not acutely ill
Neck: No jaundice
Heart: s1/s2 regular rate and rhythm, no murmur. equal radial pulses.
Lungs: no acute respiratory distress. clear bilaterally
Abdomen: Not tender
Neuro: alert and oriented. no focal neurological deficits
Skin: no rash
Psychiatric: well kept. interactive and cooperative
Extremities: no edema.
Scores
Heart Score for Chest Pain Patients
STEMI patient?: No
History: Slightly or Non-Suspicious
ECG: Normal
Age: </= 45 years
Risk Factors: No Risk Factors
Troponin: </= Normal Limit
Heart Score for Chest Pain Patients: 0
Heart Score Risk: 2.5% MACE over next 6 weeks
PE Wells Score
Symptoms of DVT: No
No alternative diagnosis better explains the illness: No
Tachycardia with pulse > 100: No
Immobilization (>=3 days) or surgery within previous 4 weeks: No
Prior history of DVT or pulmonary embolism: Yes
Presence of hemoptysis: No
Presence of malignancy: No
Pulmonary Embolism Risk Score: 1.5
Probability of PE: Pt is low risk
Course
Orders/Labs/Results
Orders:
Orders
06/15/25 18:59
Electrocardiogram (*1) Urgent
Reason for Study: Chest Pain
EKG- Treatment ONCE
06/15/25 19:10
Complete Blood Count/With Diff Urgent
Comprehensive Metabolic Panel Urgent
PT/INR [Prothrombin Time] Urgent
Troponin I Urgent
06/15/25 20:59
CT Head W/o Iv Contrast Urgent
Comment:
Reason For Exam: headache
06/15/25 21:00
Ketorolac [Toradol] 30 mg IV NOW STA
06/15/25 21:36
D-Dimer Urgent
Abnormal Lab Results
06/15/25
19:10
RBC 4.19 L 10^6/uL
(4.20-5.40)
MPV 10.8 H fL
(7.4-10.4)
Alkaline Phosphatase 36 L U/L
(38-126)
06/15/25 19:10
06/15/25 19:10
Vital Signs
Initial and Last Documented VS:
Initial Vital Signs
Temp Pulse Resp BP Pulse Ox
98.5 F 81 16 104/64 98
06/15/25 18:55 06/15/25 18:55 06/15/25 18:55 06/15/25 18:55 06/15/25 18:55
Last Documented Vital Signs
Temp Pulse Resp BP Pulse Ox
98.5 F 72 18 101/66 100
06/15/25 18:55 06/15/25 22:06 06/15/25 22:06 06/15/25 22:06 06/15/25 22:06
MDM/Problems Addressed
Differential Diagnosis Includes:
PE anxiety ACS intracerebral hemorrhage brain tumor migraine tension
MDM/Problems Addressed:
Chest pain headache
Chronic conditions affecting care:
Anxiety PE
Acute Exacerbation and/or Progression of Chronic Illness:
Anxiety prior PE
*Radiology
Radiology exam reviewed: radiology read reviewed
*Pulse Oximetry
SaO2: 98
Oxygen Mode of Delivery: Room air
Patient hypoxic: no
*EKG
Interpreted by ED Provider?: Yes
Interpretation: normal
Comparison EKG: no comparison EKG present
Heart Rate: 78
Rate: normal
Rhythm: sinus
Ischemia: no ischemia
*[employer] Interpretation
Rate: normal
Interpretation: normal
Heart Rate: 78
Rhythm: sinus
*Critical Care Note
Total Time (30-74mins, 75-104mins- exclusive of procedures): Not Applicable
Update Note
Update Note:
[address] report noted EKG noted troponin noted D-dimer noted patient updated she is feeling better
Patient has seen Dr. Garcia from neurology previously. I encouraged her to headaches she already has an appointment with cardiology set up encouraged her to keep that
ED Attending Note
-
Portions of this chart may have been created with voice recognition software.� Occasional wrong word or��sound alike� substitutions may have occurred due to the inherent limitations of voice recognition software.
Discharge Plan
Departure
Patient Disposition: Home (Routine Discharge)
Date of Disposition: 06/15/25
Time of Disposition: 22:24
Patient with high blood pressure during this ER visit?: No
Condition: Good
Discharge Problem:
Headache, Chest pain
Instructions: Headache, Adult (DC), Chest pain in adults - ED (DC)
Prescriptions:
No Action
sertraline 25 mg Tablet
25 mg PO DAILY Qty: 90 0RF
enoxaparin 40 mg/0.4 mL Syringe
40 mg SC DAILY Qty: 42 0RF
acetaminophen [Tylenol Extra Strength] 500 mg Tablet
1,000 mg PO Q6HPRN PRN (Reason: mild pain)
docusate sodium [Colace] 100 mg Capsule
100 mg PO DAILY
PNV no.95-ferrous fumarate-FA [] 28 mg iron- 800 mcg Tablet
2 tab PO DAILY
ondansetron 4 mg tablet,disintegrating
4 mg PO Q8H PRN (Reason: nausea and vomiting) 5 Days Qty: 14 0RF
dicyclomine 20 mg tablet
20 mg PO QID PRN (Reason: abdominal pain) Qty: 20 0RF
Referrals:
Felice Hernandez MD [Family Provider, Family Practice]
Interventions
Interventions:
*Risk Screen - Suicide Last Done: 06/15/25 18:55
*General Assessment Last Done: 06/15/25 18:55
*Neglect/Abuse Screening Last Done: 06/15/25 18:55
*ED- Fall Risk Assessment Last Done: 06/15/25 18:55
*ED COVID-19 Vaccine History Last Done: 06/15/25 18:55
*ED Influenza Vaccine History Last Done: 06/15/25 18:55
ED- Neurological Assessment Last Done: 06/15/25 22:03
Discharge Date and Time
Print Language: [id number]
[2025-06-15] MEDS: TORADOL 30 MG IV (21:34)
[2025-06-15 21:57] LABS: D-Dimer 0.29 ug/mlFEU (0.00-0.50)
[2025-06-15 22:03] VITALS: BMI 19.8
[2025-06-15 22:06] VITALS: BP 101/66
== END 2025-06-15 22:37 | disposition home or self-care (01) ==
LOC: EMR 18:37
PROVIDERS: EMERGENCY PHYSICIAN Emergency Medicine; FAMILY PHYSICIAN Family Medicine
DX: R51.9 Headache, unspecified (principal); R07.9 Chest pain, unspecified; F41.9 Anxiety disorder, unspecified; K21.9 Gastro-esophageal reflux disease without esophagitis; Z86.711 Personal history of pulmonary embolism; Z82.49 Family history of ischemic heart disease and other diseases of the circulatory system
CPT/HCPCS: 99284; 96374; 70450; 80053; 84484; 85025; 85379; 85610; 93005